=== PATIENT | female | born 1960 | race Caucasian/White ===

== ENCOUNTER 2023-02-18 07:16 | Day surgery (SDC) | payer OTHER ==
[2023-02-12 15:27] VITALS: BMI 33.3
[2023-02-18] MEDS ORDERED: PROPOFOL 120 ML ONE (07:19)
[2023-02-18] MEDS ORDERED: LIDOCAINE HCL/PF 2% SDV 5ML VIAL ONE (07:39)
[2023-02-18 08:33] VITALS: PULSE 88; RESP 16; TEMP 97.7
[2023-02-18 08:58] VITALS: BP 109/69
== END 2023-02-18 08:49 | disposition home or self-care (01) ==
LOC: FASU-ENDO 07:16
PROVIDERS: ATTEND Internal Medicine Gastroenterology
PROC: 0DBN8ZX Excision of Sigmoid Colon, Via Natural or Artificial Opening Endoscopic, Diagnostic (ICD-10-PCS; 2023-02-18)
PROC: 0DBC8ZX Excision of Ileocecal Valve, Via Natural or Artificial Opening Endoscopic, Diagnostic (ICD-10-PCS; principal; 2023-02-18 08:02)
DX: Z12.11 Encounter for screening for malignant neoplasm of colon (principal); D12.0 Benign neoplasm of cecum; D12.5 Benign neoplasm of sigmoid colon; D17.5 Benign lipomatous neoplasm of intra-abdominal organs; K57.30 Diverticulosis of large intestine without perforation or abscess without bleeding
CPT/HCPCS: 82962